=== PATIENT | female | born 1975 | race Caucasian/White ===

== ENCOUNTER 2022-04-06 11:54 | Emergency (ER) | payer BC, SELFPAY ==
[2022-04-06 12:09] VITALS: BP 114/77; PULSE 90; RESP 18; TEMP 36.2; O2SAT 100
--- NOTE | 2022-04-06 12:16 | ED.URI ---
HPI - URI/Sore Throat General Chief Complaint: Upper Respiratory Infection Stated Complaint: Cough,Sore Throat Time Seen by Provider: 04/06/22 12:16 Source: patient and RN notes reviewed Mode of arrival: ambulatory Limitations: no limitations History of Present Illness HPI Narrative: 46-year-old female presents to the [facility] with complaints of cough and sore throat since Saturday, 4 days. Has taken Sudafed and NyQuil for symptoms. Related Data Home Medications Medication Instructions Recorded Confirmed Otc Vitamins 04/06/22 albuterol sulfate 90 mcg/actuation inhalation 04/06/22 aerosol inhaler ergocalciferol (vitamin D2) 1,250 04/06/22 mcg (50,000 unit) capsule lisinopril 10 mg tablet mg 04/06/22 metformin 500 mg tablet mg 04/06/22 thyroid (pork) 30 mg tablet mg 04/06/22 04/06/22 ([place] Thyroid) Allergies Allergy/AdvReac Type Severity Reaction Status Date / Time Sulfa (Sulfonamide Allergy Mild Unknown Unverified 04/06/22 12:03 Antibiotics) NSAIDS (Non-Steroidal Allergy Unknown Verified 04/06/22 12:03 Anti-Inflamma Review of Systems Review of Systems: All systems reviewed & are unremarkable except as noted in HPI and below Constitutional: Constitutional: Reports no additional constitutional complaints, Denies chills and Denies fever(s) Eyes: Eyes: Reports no additional eye complaints ENT: Reports as per HPI Cardiovascular: Cardiovascular: Reports no additional cardiovascular complaints Respiratory: Respiratory: Reports as per HPI and Reports cough Gastrointestinal: Gastrointestinal: Reports no additional gastrointestinal complaints Musculoskeletal: Musculoskeletal: Reports no additional musculoskeletal complaints Integumentary/Breasts: Skin/Breast: Reports system reviewed and no additional complaints, except as docu Neurologic: Reports system reviewed and no additional complaints, except as documented Psychiatric: Psychiatric: Reports no additional psychiatric complaints Allergic/Immunologic: Allergic/Immunologic: Reports no additional allergic/immunologic complaints [facility] Past Medical History Medical History (Updated 04/07/22 @ 00:00 by Ann-Marie Monae) Asthma History of high blood pressure PCOS (polycystic ovarian syndrome) Social History Social History (Updated 04/06/22 @ 12:17 by Siomara Hackett APRN) Gender identity (if verbalized by the patient): Female Comments At the time of my signature, I reviewed and agree with the nursing past medical, surgical, social, and family history. There is no relevant family history pertinent to the patient complaint. Exam Const: General: healthy appearing, no acute distress, alert and well nourished Nutritional Appearance: well nourished Orientation/consciousness: patient oriented x3 Limitations: no limitations HENMT: Head: normal to inspection Ears: external ears normal, TM's normal bilaterally and EAC's normal Face/Nose/Sinus: Normal external nose present Throat: posterior oropharynx normal, uvula midline and postnasal drainage Eyes: General: appearance normal, both eyes and all related structures Pupils: Equal, round and reactive pupils present Neck: Neck: normal visual inspection, no lymphadenopathy and no meningeal signs Chest: Chest palpation & inspection: normal inspection of the chest Resp: Effort & Inspection: normal respiratory effort and no use of accessory muscles Auscultation: clear to auscultation bilaterally, no crackles, no rales, no rhonchi, no wheezes and diminished lung sounds bilateral in the lower lung coburn Other: Strong cough noted Cardio: Rate: regular rate Rhythm: regular rhythm Skin: General skin exam: normal color Rashes: no rashes Wounds: no wounds Neuro: General: patient oriented x3, moves all extremities, no meningeal signs and no focal motor deficits Cranial nerves: Yes Equal, round and reactive pupils present Speech: normal speech Gait exam (Neuro): Normal gait prese
== END 2022-04-06 12:36 | disposition home or self-care (01) ==
PROVIDERS: Emergency Provider Nurse Practitioner
DX: J40 Bronchitis, not specified as acute or chronic (principal); R09.82 Postnasal drip; J45.909 Unspecified asthma, uncomplicated; E28.2 Polycystic ovarian syndrome; I10 Essential (primary) hypertension
CPT/HCPCS: 99213; G0463

== ENCOUNTER 2024-06-20 12:46 | Emergency (ER) | payer BC, SELFPAY ==
[2024-06-20 12:56] VITALS: BP 147/84; PULSE 89; RESP 18; TEMP 36.6; O2SAT 100
--- NOTE | 2024-06-20 13:22 | ED_ITS ---
HPI - URI/Sore Throat General Chief Complaint: Upper Respiratory Infection Stated Complaint: Ear Irritation/Sore Throat Time Seen by Provider: 06/20/24 13:22 Source: patient and RN notes reviewed Mode of arrival: ambulatory Limitations: no limitations History of Present Illness HPI Narrative: 48-year-old female presents for day history of nasal congestion, drainage, cough, ear pain pressure. She reports left ear pain. She reports headache, body aches and chills. Reports she had a negative COVID test at home. MD elicited complaint: sore throat, nasal congestion and other (ear pain) Related Data Home Medications ?Medication ?Instructions ?Recorded ?Confirmed ?Last Taken ?Type Otc Vitamins 04/06/22 Unknown History albuterol sulfate 90 mcg/actuation inhalation 04/06/22 Unknown History aerosol inhaler ergocalciferol (vitamin D2) 1,250 04/06/22 Unknown History mcg (50,000 unit) capsule metformin 500 mg tablet mg 04/06/22 Unknown History thyroid (pork) 30 mg tablet mg 04/06/22 04/06/22 Unknown History ([place] Thyroid) Allergies Allergy/AdvReac Type Severity Reaction Status Date / Time Sulfa (Sulfonamide Allergy Mild Unknown Verified 06/20/24 12:48 Antibiotics) NSAIDS (Non-Steroidal Allergy Unknown Verified 06/20/24 12:48 Anti-Inflamma Review of Systems Review of Systems: CONSTITUTIONAL: Reports malaise, chills, sweats. Denies fever. EYES: Denies visual changes, redness, or discharge. ENT: Reports rhinorrhea, congestion, sinus pain, otalgia and sore throat. CARDIOVASCULAR: Denies chest pain, palpitations, or edema. RESPIRATORY: Reports cough. Denies dyspnea. GASTROINTESTINAL: Denies abdominal pain, nausea, vomiting, diarrhea SKIN: Denies rash or itching. MUSCULOSKELETAL: Reports myalgia. NEUROLOGIC: Reports headache. All systems reviewed & are unremarkable except as noted in HPI and below PMFSH Past Medical History Medical History (Updated 06/20/24 @ 13:26 by Siomara Taveras NP) History of high blood pressure PCOS (polycystic ovarian syndrome) Asthma Social History Social History (Updated 04/06/22 @ 12:17 by Siomara Hackett APRN) Gender identity (if verbalized by the patient): Female Comments At time of signature, agree with nursing past medical, surgical, social and family history. There is no relevant family history pertinent to the presenting complaint Exam Narrative: GENERAL: Nontoxic-appearing, well-nourished, and in no acute distress. HEAD: Normocephalic EYES: PERRLA, conjunctivae clear ENT: Nares clear. Mucous membranes moist. TM pearly michelle with dull light reflex on the right, erythematous and bulging on the left; no tragal tenderness. Oropharynx not erythematous without lesions. Tonsils not enlarged and without exudate, no drooling, no hoarseness, no trismus, uvula midline. NECK: Supple. No lymphadenopathy CHEST: Clear to auscultation, breath sounds equal. No wheezing, rhonchi, rales, or stridor. No respiratory distress, speaks in full sentences. HEART: Regular rate and rhythm. No murmur heard. SKIN: Warm, dry, no rash. NEURO: Alert and oriented x3. PSYCH: Normal mood and affect Course Course Emergency Course: Patient is aware of diagnosis, understands and agrees to treatment plan. Anticipatory guidance given. Patient agrees to follow-up as directed and is aware of reasons to seek care at the emergency department. Portions of this record may have been created with voice recognition software Level of Care: Express Care Visit Vital Signs Vital signs: Vital Signs Temperature 97.8 F 06/20/24 12:56 Pulse Rate 89 06/20/24 12:56 Respiratory Rate 18 06/20/24 12:56 Blood Pressure 147/84 H 06/20/24 12:56 Pulse Oximetry 100 06/20/24 12:56 Oxygen Delivery Room Air 06/20/24 12:56 Temperature 97.8 F 06/20/24 12:56 Pulse Rate 89 06/20/24 12:56 Respiratory Rate 18 06/20/24 12:56 Blood Pressure 147/84 H 06/20/24 12:56 Pulse Oximetry 100 06/20/24 12:56 Oxygen Delivery Room Air 06/20/24 12:56 Reviewed. MDM - URI/Sore Throat MDM Narrative Medical decision making narrative: Differential diagnosis considered: [place] virus, strep pharyngitis, allergic rhinitis, upper respiratory tract infection, sinusitis, rhinosinusitis, nasopharyngitis. viral pharyngitis, otitis media, otitis externa, pneumonia, bronchitis, viral cough syndrome, viral syndrome, and influenza. Exam findings show no acute concerns or changes; patient is non-toxic appearing and is in no distress. Patient is appropriate for outpatient treatment and follow-up. Lab Data Attestation: I reviewed the patient's lab results. Critical Care Time Critical Care Time Critical Care Time: No Discharge Plan Discharge Clinical Impression: Otitis media, Upper respiratory infection Patient Disposition: Home, Self-Care Condition: Stable Instructions: Antibiotic Form, Ear Infection (ED) Additional Instructions: Your COVID and flu tests are negative Take antibiotics as directed. Recommend antihistamine such as Benadryl at night time and Zyrtec or Diana during the day until symptoms improve Flonase nasal spray, 2 sprays in each nostril once daily until symptoms improve Also, recommend symptomatic treatment includes: rest, fluids, and increase humidity of the air at home. Recommend Acetaminophen as directed on the bottle to reduce fever, pain Please schedule a follow-up visit with your personal physician for further evaluation and treatment within 3-5days. If your symptoms persist, change or worsen significantly before you can contact your personal physician then please, without delay, go to the emergency department for further evaluation. Patient Language: Greenlandic Prescriptions: New amoxicillin 875 mg tablet 875 mg PO Q12H 10 Days Qty: 20 0RF methylprednisolone [Medrol (Quentin)] 4 mg tablets,dose pack See Rx Instructions .ROUTE .COMPLEX Qty: 21 0RF Rx Instructions: orally per package directions No Action metformin 500 mg tablet ergocalciferol (vitamin D2) 1,250 mcg (50,000 unit) capsule albuterol sulfate 90 mcg/actuation HFA aerosol inhaler INHALATION thyroid (pork) [[place] Thyroid] 30 mg tablet Otc Vitamins Follow-up/Referrals: Parag,MD Ran [Primary Care Provider] - Time of Disposition: 13:27
[2024-06-20 13:23] LABS: EDCOVIDSCREEN Negative (Negative); EDINFLUASCREEN Negative (Negative); EDINFLUBSCREEN Negative (Negative)
== END 2024-06-20 13:30 | disposition home or self-care (01) ==
PROVIDERS: Emergency Provider Nurse Practitioner; PCP Internal Medicine
DX: H66.92 Otitis media, unspecified, left ear (principal); J06.9 Acute upper respiratory infection, unspecified; Z20.822 Contact with and (suspected) exposure to COVID-19
CPT/HCPCS: 87426; 87804; 99213; G0463